=== PATIENT | female | born 1975 | race Caucasian/White ===

== ENCOUNTER 2017-02-24 07:41 | Emergency (ER) | payer BC ==
[2017-02-24 07:47] VITALS: BP 113/78
[2017-02-24] MEDS ORDERED: Ipratropium 0.5MG/2.5ML NEB* 0.5 MG/2.5 ML NEB.SOLN INH ONE (07:56)
[2017-02-24] MEDS ORDERED: Albuterol 2.5 MG/3 ML NEB.SOL* (0.083%) INH ONE (07:56)
[2017-02-24] MEDS ORDERED: predniSONE TAB* 20 MG PO ONE (07:56)
--- NOTE | 2017-02-24 08:01 | UC ---
Respiratory Complaint HPI - HPI Summary HPI Summary: 41 YO FEMALE with a 3 day hx of cough/runny nose/sinus pressure/sore throat and chest tightness she smokes but is trying to quit no f/c no n/v/d no cp or sob she uses Spriva and has an albuterol inhaler - History of Current Complaint Chief Complaint: UCGeneralIllness Stated Complaint: URI Time Seen by Provider: 02/24/17 07:49 Hx Obtained From: Patient Hx Last Menstrual Period: Depo Onset/Duration: Gradual Onset, Lasting Days Timing: Constant Severity Initially: Mild Severity Currently: Moderate Pain Intensity: 6 Pain Scale Used: 0-10 Numeric Character: Cough: Productive - at times Aggravating Factors: Nothing Alleviating Factors: Nothing Associated Signs And Symptoms: Positive: Wheezing, URI, Nasal Congestion, Sinus Discomfort - Allergies/Home Medications Allergies/Adverse Reactions: Allergies Allergy/AdvReac Type Severity Reaction Status Date / Time No Known Allergies Allergy Verified 02/24/17 07:43 Home Medications: Home Medications Naproxen TAB* [Naprosyn 250 mg TAB*] 02/24/17 [History] PMH/Surg Hx/FS Hx/Imm Hx Previously Healthy: Yes Respiratory History: Bronchitis - Surgical History Surgical History: None - Family History Known Family History: Positive: Respiratory Disease - COPD Negative: Cardiac Disease, Hypertension, Diabetes - Social History Alcohol Use: None Substance Use Type: None Smoking Status (MU): Heavy Every Day Tobacco Smoker Amount Used/How Often: 1/2 PPD Cessation Counseling: Patient Advised to Stop Review of Systems Constitutional: Negative Skin: Negative Eyes: Negative ENT: Sore Throat, Nasal Discharge, Sinus Congestion, Sinus Pain/Tenderness Respiratory: Cough Cardiovascular: Negative Gastrointestinal: Negative Genitourinary: Negative Motor: Negative Neurovascular: Negative Musculoskeletal: Negative Neurological: Negative Psychological: Negative Is Patient Immunocompromised?: No All Other Systems Reviewed And Are Negative: Yes Physical Exam Triage Information Reviewed: Yes Appearance: Well-Appearing, No Pain Distress, Well-Nourished Vital Signs: Initial Vital Signs Temp 98.6 F 02/24/17 07:44 Pulse 98 02/24/17 07:44 Resp 18 02/24/17 07:44 BP 113/78 02/24/17 07:44 Pulse Ox 100 02/24/17 07:44 Vital Signs Reviewed: Yes Eyes: Positive: Conjunctiva Clear ENT: Positive: Hearing grossly normal, Nasal congestion, Nasal drainage, Other: - L>R max sinus tenderness. Negative: TMs normal - Left OK, Right unable to vis due to cerumen, Tonsillar exudate, Trismus, Muffled/hoarse voice Neck: Positive: Supple, Nontender, No Lymphadenopathy Respiratory: Positive: No respiratory distress, No accessory muscle use, Wheezing Cardiovascular: Positive: RRR, No Murmur Musculoskeletal: Positive: ROM Intact, No Edema Neurological: Positive: Alert Psychological Exam: Normal Skin Exam: Normal UC Diagnostic Evaluation - Laboratory O2 Sat by Pulse Oximetry: 100 - normal/not hypoxic Re-Evaluation - Re-Evaluation First Eval Re-Evaluation Time: 08:34 Change: Improved - better air movement, decreased wheezing Respiratory Course/Dx - Differential Dx/Diagnosis Provider Diagnoses: acute bronchitis with bronchospasm. tobacco abuse Discharge - Discharge Plan Condition: Stable Disposition: HOME Prescriptions: Amoxicillin PO (*) [Amoxicillin 875 MG (*)] 875 mg PO BID #14 tab Prednisone [Deltasone] 40 mg PO DAILY #10 tab Patient Education Materials: Acute Bronchitis (ED) Referrals: Non Staff,Doctor [Primary Care Provider] - Additional Instructions: saline nasal spray twice daily warm facial compresses use your albuterol inhaler- 2 puffs 4x day for 5-7 days recheck for new or worsening symptoms recheck in 4-5 days if not better
== END 2017-02-24 09:00 | disposition home or self-care (01) ==
LOC: UCEAST 07:41
DX: J20.9 Acute bronchitis, unspecified (principal); F17.210 Nicotine dependence, cigarettes, uncomplicated
CPT/HCPCS: 99212; G0463; J7512; J7644

== ENCOUNTER 2017-04-25 07:02 | Emergency (ER) | payer BC ==
[2017-04-25 07:11] VITALS: BP 101/63
--- NOTE | 2017-04-25 07:25 | UC ---
Respiratory Complaint HPI - HPI Summary HPI Summary: 41 yo female with URI syptoms x 1 week has had to use her rescue inhaler on spriva now with one day hx of mod facial pressure and pain no f/c cough and chest tightness - History of Current Complaint Chief Complaint: UCRespiratory Stated Complaint: SINUS ISSUE Time Seen by Provider: 04/25/17 07:11 Hx Obtained From: Patient Hx Last Menstrual Period: on Depo, unsure of last period Onset/Duration: Sudden Onset, Lasting Weeks Timing: Constant Severity Initially: Mild Severity Currently: Moderate Pain Intensity: 4 Pain Scale Used: 0-10 Numeric Character: Cough: Productive Aggravating Factors: Nothing Alleviating Factors: Bronchodilator Associated Signs And Symptoms: Positive: Wheezing, Nasal Congestion, Sinus Discomfort - Allergies/Home Medications Allergies/Adverse Reactions: Allergies Allergy/AdvReac Type Severity Reaction Status Date / Time No Known Allergies Allergy Verified 02/24/17 07:43 Home Medications: Home Medications [id number] [Tylenol Cold & Head Sever 5-325-200 mg] 1 tab PO 04/25/17 [History] PMH/Surg Hx/FS Hx/Imm Hx Previously Healthy: Yes Respiratory History: COPD - Surgical History Surgical History: None - Family History Known Family History: Positive: Respiratory Disease - COPD Negative: Cardiac Disease, Hypertension, Diabetes - Social History Alcohol Use: None Substance Use Type: None Smoking Status (MU): Heavy Every Day Tobacco Smoker Amount Used/How Often: 1/2 PPD Cessation Counseling: Patient Advised to Stop - Immunization History Most Recent Influenza Vaccination: 2017 Review of Systems Constitutional: Fatigue Skin: Negative Eyes: Negative ENT: Nasal Discharge, Sinus Congestion, Sinus Pain/Tenderness Respiratory: Cough Cardiovascular: Negative Gastrointestinal: Negative Genitourinary: Negative Motor: Negative Neurovascular: Negative Musculoskeletal: Negative Neurological: Negative Psychological: Negative Is Patient Immunocompromised?: No All Other Systems Reviewed And Are Negative: Yes Physical Exam Triage Information Reviewed: Yes Appearance: Well-Appearing, No Pain Distress, Well-Nourished Vital Signs: Initial Vital Signs Temp 97.8 F 04/25/17 07:06 Pulse 82 04/25/17 07:06 Resp 16 04/25/17 07:06 BP 101/63 04/25/17 07:06 Pulse Ox 100 04/25/17 07:06 Vital Signs Reviewed: Yes Eyes: Positive: Conjunctiva Clear ENT: Positive: Hearing grossly normal, Nasal congestion, Nasal drainage, TMs normal - unable to vis right TM due to cerumen Dental: Positive: Other: - upper dentures Neck: Positive: Supple, Nontender, No Lymphadenopathy Respiratory: Positive: No respiratory distress, No accessory muscle use, Wheezing Cardiovascular: Positive: RRR Musculoskeletal: Positive: ROM Intact, No Edema Neurological: Positive: Alert Psychological Exam: Normal Skin Exam: Normal UC Diagnostic Evaluation - Laboratory O2 Sat by Pulse Oximetry: 100 - normal/not hypoxic Respiratory Course/Dx - Differential Dx/Diagnosis Provider Diagnoses: acute sinusitis. bronchospasm- exacerbation of COPD Discharge - Discharge Plan Condition: Stable Disposition: HOME Prescriptions: Amoxicillin PO (*) [Amoxicillin 875 MG (*)] 875 mg PO BID #20 tab Prednisone [Deltasone] 40 mg PO DAILY #10 tab Patient Education Materials: Sinusitis (ED), Bronchospasm (ED) Referrals: Non Staff,Doctor [Primary Care Provider] - 7 Days (if not better) Additional Instructions: try to decrease or stop smoking warm facial compresses saline nasal spray twice daily
== END 2017-04-25 07:31 | disposition home or self-care (01) ==
LOC: UCEAST 07:02
DX: J01.90 Acute sinusitis, unspecified (principal); J98.01 Acute bronchospasm; J44.1 Chronic obstructive pulmonary disease with (acute) exacerbation; R53.83 Other fatigue; F17.210 Nicotine dependence, cigarettes, uncomplicated
CPT/HCPCS: 99212; G0463

== ENCOUNTER 2017-09-09 08:41 | Emergency (ER) | payer BC ==
[2017-09-09 08:49] VITALS: BP 110/73
[2017-09-09] MEDS ORDERED: Albuterol 2.5 MG/3 ML NEB.SOL* (0.083%) INH ONE (09:02)
--- NOTE | 2017-09-09 09:07 | UC ---
Throat Pain/Nasal Paul HPI - HPI Summary HPI Summary: Patient c/o sinus congestion, sore thraot, PND, and severe cough - History of Current Complaint Chief Complaint: UCRespiratory Stated Complaint: COUGH Time Seen by Provider: 09/09/17 08:58 Hx Obtained From: Patient Hx Last Menstrual Period: on Depo, unsure of last period ?: No Onset/Duration: Sudden Onset, Lasting Days Severity: Moderate Pain Intensity: 5 Cough: Nonproductive Associated Signs & Symptoms: Positive: Dysphagia, Hoarseness, Sinus Discomfort, Nasal Discharge - Allergies/Home Medications Allergies/Adverse Reactions: Allergies Allergy/AdvReac Type Severity Reaction Status Date / Time No Known Allergies Allergy Verified 09/09/17 08:49 Home Medications: Home Medications Medroxyprogesterone Acetate [Depo-Provera Contraceptiv] 150 mg IM 09/09/17 [ History] PMH/Surg Hx/FS Hx/Imm Hx Previously Healthy: Yes Respiratory History: COPD - Surgical History Surgical History: None - Family History Known Family History: Positive: Respiratory Disease - COPD Negative: Cardiac Disease, Hypertension, Diabetes - Social History Alcohol Use: Rare Substance Use Type: None Smoking Status (MU): Heavy Every Day Tobacco Smoker Amount Used/How Often: 1/2 PPD - Immunization History Most Recent Influenza Vaccination: 2017 Review of Systems Constitutional: Chills Skin: Negative Eyes: Negative ENT: Sore Throat, Ear Ache, Nasal Discharge, Sinus Congestion, Sinus Pain/ Tenderness Respiratory: Shortness Of Breath, Cough Cardiovascular: Negative Gastrointestinal: Negative Genitourinary: Negative Motor: Negative Neurovascular: Negative Musculoskeletal: Negative Neurological: Negative Psychological: Negative Is Patient Immunocompromised?: No All Other Systems Reviewed And Are Negative: Yes Physical Exam Triage Information Reviewed: Yes Appearance: Well-Nourished, Ill-Appearing, Pain Distress Vital Signs: Initial Vital Signs Temp 96.6 F 09/09/17 08:46 Pulse 104 09/09/17 08:46 Resp 18 09/09/17 08:46 BP 110/73 09/09/17 08:46 Pulse Ox 100 09/09/17 08:46 Vital Signs Reviewed: Yes Eye Exam: Normal ENT: Positive: Pharyngeal erythema - with posterier exudate, Nasal congestion, TM bulging, TM red, Sinus tenderness Dental Exam: Normal Neck exam: Normal Neck: Positive: Supple, Nontender, No Lymphadenopathy Respiratory: Positive: Chest non-tender, Rhonchi, Wheezing, Other: - dry constant cough on exam Cardiovascular Exam: Normal Cardiovascular: Positive: No Murmur, Pulses Normal, Tachycardia Abdominal Exam: Normal Bowel Sounds: Positive: Present Musculoskeletal Exam: Normal Neurological Exam: Normal Psychological Exam: Normal Skin Exam: Normal Throat Pain/Nasal Course/Dx - Course Course Of Treatment: hx obtained, exam performed ,meds reviewed, neb treatment given, treated for sinusitis and bronchitis - Differential Dx/Diagnosis Differential Diagnosis/HQI/PQRI: Otitis Media, Pharyngitis, Sinusitis, URI Provider Diagnoses: sinusitis. bronchitis. tobacco abuse Discharge - Sign-Out/Discharge Documenting (check all that apply): Discharge - Discharge Plan Condition: Stable Disposition: HOME Patient Education Materials: Sinusitis (ED), Acute Bronchitis (ED) Referrals: Satya Cehry MD [Primary Care Provider] - Additional Instructions: 1. take the medication as prescribed. 2. Increase fluid intake and get plenty of rest. 3. Follow up if not improving - Billing Disposition and Condition Condition: STABLE Disposition: HOME
== END 2017-09-09 09:31 | disposition home or self-care (01) ==
LOC: UCEAST 08:41
DX: J32.9 Chronic sinusitis, unspecified (principal); J40 Bronchitis, not specified as acute or chronic; F17.210 Nicotine dependence, cigarettes, uncomplicated
CPT/HCPCS: 99212; G0463